=== PATIENT | female | born 1965 | race Asian ===

== ENCOUNTER 2024-03-15 18:13 | Inpatient (IN) | payer MEDICARE, OTHER ==
[~2024-03-15] VITALS: Ht 149.9 cm; Wt 37.2 kg
[2024-03-15] MEDS ORDERED: ACET325C7 PO (18:28)
[2024-03-15] MEDS ORDERED: POLY17PO4 PO (18:28)
[2024-03-15] MEDS ORDERED: ONDA-104 PO (18:28)
[2024-03-15] MEDS ORDERED: MAGN400O6 PO (18:28)
[2024-03-15] MEDS ORDERED: RISP0.5T65 PO (18:28)
[2024-03-15] MEDS ORDERED: MAGN400C PO (18:28)
[2024-03-15] MEDS ORDERED: LOPE2TAB25 PO (18:28)
[2024-03-15] MEDS ORDERED: CHOL500062 PO (18:28)
[2024-03-15] MEDS ORDERED: TRAZ-182 PO (18:28)
[2024-03-15] MEDS ORDERED: VALP250C3 PO (18:28)
[2024-03-15] MEDS ORDERED: SODIUM CHLORIDE PO (18:28)
[2024-03-15] MEDS ORDERED: MULT-213 PO (18:28)
[2024-03-15] MEDS ORDERED: BENZ2TAB7 PO (18:28)
[2024-03-15] MEDS ORDERED: METF-442 PO (18:28)
[2024-03-15] MEDS ORDERED: BISA10SU95 RC (18:28)
[2024-03-15] MEDS ORDERED: MINE133E RC (18:28)
[2024-03-15 18:49] LABS: BASOPHILS % (AUTO) 0.6 % (0.0-2.0); EOSINOPHILS # (AUTO) 0.1 K/uL (0.0-0.7); EOSINOPHILS % (AUTO) 1.9 % (0.0-7.0); HEMATOCRIT 36.1 % (31.2-41.9); HEMOGLOBIN 12.7 g/dL (10.9-14.3); LYMPHOCYTES # (AUTO) 2.9 K/uL (0.8-4.8); LYMPHOCYTES % (AUTO) 41.2 % (20.5-51.5); MEAN CORPUSCULAR HEMOGLOBIN 32.3 uug (24.7-32.8); MEAN CORPUSCULAR HGB CONC 35 g/dL (32.3-35.6); MEAN CORPUSCULAR VOLUME 91.7 fL (75.5-95.3); MONOCYTES # (AUTO) 0.5 K/uL (0.1-1.30); MONOCYTES % (AUTO) 7.2 % (0.0-11.0); NEUTROPHILS # (AUTO) 3.5 K/uL (1.8-8.9); NEUTROPHILS % (AUTO) 49.1 % (38.5-71.5); PLATELET COUNT (AUTO) 302 K/uL (179-408); RED BLOOD CELL COUNT(AUTO) 3.93 MIL/uL (3.63-4.92); RED CELL DISTRIBUTION WIDTH 13.7 % (12.3-17.7); WHITE BLOOD COUNT (AUTO) 7.1 K/uL (3.8-11.8)
[2024-03-15 18:54] LABS: DIFFERENTIAL COMMENT 1
[2024-03-15 19:01] LABS: CALCIUM 8.7 mg/dL (8.5-10.1); CARBON DIOXIDE 29 mmol/L (21-32); CHLORIDE 96 mmol/L (98-107); CREATININE 0.5 mg/dL (0.6-1.3); GLUCOSE 138 mg/dL (74-106); POTASSIUM 4.2 mmol/L (3.5-5.1); SODIUM SERUM 136 mmol/L (136-145); UREA NITROGEN, BLOOD 8 mg/dL (7-18)
[2024-03-15 19:04] LABS: ETHANOL < 3 MG/DL (0-10)
[2024-03-15 19:11] LABS: *BILIRUBIN,URIN NEGATIVE (NEGATIVE); *BLOOD, URINE NEGATIVE (NEGATIVE); *CLARITY,URINE CLEAR (CLEAR); *COLOR,URINE YELLOW (YELLOW); *KETONES,URINE NEGATIVE (NEGATIVE); *PROTEIN,URINE NEGATIVE (NEGATIVE); *UROBILINOGEN,URINE 0.2 E.U./dl (NORMAL); LEUKOCYTE ESTERASE ,URINE NEGATIVE (NEGATIVE); NITRITE, URINE NEGATIVE (NEGATIVE); UGLUCOSE NEGATIVE (NEGATIVE)
[2024-03-15 19:15] LABS: ACETAMINOPHEN < 2.0 ug/mL (10-30); ALANINE AMINOTRANSFERASE 20 U/L (14-59); ALBUMIN 3.5 g/dL (3.4-5.0); ALKALINE PHOSPHATASE 71 U/L (50-136); ASPARTATE AMINOTRANSFERASE 20 U/L (15-37); BILIRUBIN,TOTAL 0.4 mg/dL (0.2-1.0); TOTAL PROTEIN, SERUM 7.5 g/dL (6.4-8.2)
[2024-03-15 19:23] LABS: *AMPHETAMINE, URINE NEGATIVE (NEGATIVE); *BARBITURATE, URINE NEGATIVE (NEGATIVE); *BENZODIAZEPINE, URINE NEGATIVE (NEGATIVE); *CANNABINOID, URINE NEGATIVE (NEGATIVE); *COCCAINE, URINE NEGATIVE (NEGATIVE); *OPIATE, URINE NEGATIVE (NEGATIVE); *PHENCYCLIDINE SCREEN,URINE NEGATIVE (NEGATIVE)
[2024-03-15 19:25] LABS: FENTANYL, URINE NEGATIVE (NEGATIVE)
[2024-03-15 19:27] LABS: BILIRUBIN,DIRECT < 0.1 mg/dL (0.0-0.2)
[2024-03-15] MEDS ORDERED: MAGNESIUM HYDROXIDE 30 ML LIQUID UDC PO PRN (22:00)
[2024-03-15] MEDS ORDERED: ACETAMINOPHEN 325 MG TABLET PO PRN (22:00)
[2024-03-15] MEDS ORDERED: MAG HYDROX/AL HYDROX/SIMETH 30 ML LIQUID UDC PO PRN (22:00)
[2024-03-15 22:18] VITALS: BP 129/64; TEMP 98.1; O2SAT 98
[2024-03-15] MEDS: LORAZEPAM 0.5 MG TABLET PO PRN (22:27)
[2024-03-15] MEDS: BLOOD SUGAR DIAGNOSTIC 1 EACH STRIP VI ONE (22:54)
[2024-03-16 07:30] VITALS: BP 102/52; TEMP 97.6; O2SAT 100
[2024-03-16 08:30] LABS: ALBUMIN 3.9 g/dL (3.4-5.0); BILIRUBIN,TOTAL 0.5 mg/dL (0.2-1.0); CALCIUM 9.2 mg/dL (8.5-10.1); CREATININE 0.6 mg/dL (0.6-1.3); TOTAL PROTEIN, SERUM 8.5 g/dL (6.4-8.2)
[2024-03-16] MEDS: NICOTINE 14 MG/24HR PATCH TD SCH (09:09)
[2024-03-16] MEDS: TRIHEXYPHENIDYL HCL 2 MG TABLET PO SCH (10:32)
[2024-03-16] MEDS: risperiDONE 0.5 MG TABLET PO SCH (10:32)
[2024-03-16] MEDS ORDERED: MAGNESIUM HYDROXIDE 30 ML LIQUID UDC PO PRN (11:00)
[2024-03-16] MEDS ORDERED: Medication Not On Formulary EA (Acetaminophen (Tylenol) 650 MG) PO SCH (11:00)
[2024-03-16] MEDS ORDERED: BISACODYL 10 MG SUPP.RECT RC PRN (11:00)
[2024-03-16 16:58] VITALS: BP 101/53; TEMP 98.6; O2SAT 99
[2024-03-16] MEDS ORDERED: Medication Not On Formulary EA (Metformin Hcl 1,000 MG) PO SCH (17:00)
[2024-03-16] MEDS: METFORMIN HCL 500 MG TABLET PO SCH (17:22)
[2024-03-16 20:00] VITALS: BP 90/59; TEMP 97.3; O2SAT 98
[2024-03-16] MEDS: MIRTAZAPINE 15 MG TABLET PO SCH (21:53)
[2024-03-16] MEDS: DIVALPROEX SPRINKLE 125 MG CAP.SPRINK PO SCH (21:53)
[2024-03-16] MEDS: ZOLPIDEM 5 MG TABLET PO PRN (22:39)
[2024-03-17 08:05] VITALS: BP 129/49; TEMP 97.8; O2SAT 100
[2024-03-17] MEDS ORDERED: Medication Not On Formulary EA (Cholecalciferol (Vitamin D3) (Vitamin D3) 1 TAB) PO SCH (09:00)
[2024-03-17] MEDS ORDERED: Medication Not On Formulary EA (Multivitamins W-Minerals (Multivitamin With Minerals) 1 PO SCH (09:00)
[2024-03-17] MEDS: CHOLECALCIFEROL 1,000 UNIT TABLET PO SCH (09:15)
[2024-03-17] MEDS: MULTIVIT, IRON, MIN NO. 8, FA TABLET PO SCH (09:15)
[2024-03-17] MEDS: MIRALAX 17 GM POWD.PACK PO SCH (09:16)
[2024-03-17 15:17] VITALS: BP 108/71; TEMP 98; O2SAT 99
[2024-03-17 20:00] VITALS: BP 112/53; TEMP 97.8; O2SAT 100
[2024-03-18 07:59] VITALS: BP 101/46; TEMP 98; O2SAT 96
[2024-03-18 16:09] VITALS: BP 112/74; TEMP 98.4; O2SAT 100
[2024-03-18 20:00] VITALS: BP 113/53; TEMP 98.1; O2SAT 99
[2024-03-19 07:30] VITALS: BP 116/56; TEMP 97.3; O2SAT 98
[2024-03-19 16:40] VITALS: BP 106/47; TEMP 97.3; O2SAT 100
[2024-03-19 20:00] VITALS: BP 115/83; TEMP 98.2; O2SAT 99
[2024-03-20 08:50] VITALS: BP 108/64; TEMP 98.1; O2SAT 98
[2024-03-20] MEDS: GLUCERNA SHAKE 237 ML CAN PO SCH (16:24)
[2024-03-20 16:50] VITALS: BP 105/50; TEMP 98; O2SAT 98
[2024-03-20 19:54] VITALS: BP 106/51; TEMP 98.2; O2SAT 96
[2024-03-21 08:43] VITALS: BP 96/53; TEMP 98.3; O2SAT 99
[2024-03-21] MEDS ORDERED: risperiDONE 0.5 MG TABLET PO SCH (09:00)
[2024-03-21] MEDS: risperiDONE 1 MG TABLET PO SCH (09:56)
[2024-03-21 16:06] VITALS: BP 107/57; TEMP 98.1; O2SAT 98
[2024-03-21 19:57] VITALS: BP 110/53; TEMP 98.1; O2SAT 96
[2024-03-22 08:04] VITALS: BP 99/46; TEMP 98; O2SAT 98
[2024-03-22 15:20] VITALS: BP 107/46; TEMP 98; O2SAT 98
[2024-03-22 22:55] VITALS: BP 115/46; TEMP 98; O2SAT 99
[2024-03-23 13:04] VITALS: BP 121/59; TEMP 98; O2SAT 98
[2024-03-23 20:00] VITALS: BP 112/55; TEMP 98.1; O2SAT 98
[2024-03-24 08:10] VITALS: BP 154/72; TEMP 98; O2SAT 96
[2024-03-24 15:29] VITALS: BP 119/58; TEMP 98; O2SAT 96
[2024-03-24 20:00] VITALS: BP 114/63; TEMP 97.9; O2SAT 98
[2024-03-25 08:04] VITALS: BP 160/64; TEMP 98.2; O2SAT 98
== END 2024-03-25 16:15 | DRG 885 ==
LOC: ER 18:20 → GPS 19:20
PROVIDERS: ADMIT Psychiatry & Neurology Psychiatry; ATTEND Nurse Practitioner Acute Care
DX: F25.0 Schizoaffective disorder, bipolar type (principal); E43 Unspecified severe protein-calorie malnutrition; Z68.1 Body mass index [BMI] 19.9 or less, adult; R64 Cachexia; G24.01 Drug induced subacute dyskinesia; E78.5 Hyperlipidemia, unspecified; E11.9 Type 2 diabetes mellitus without complications; Z79.84 Long term (current) use of oral hypoglycemic drugs; Z79.899 Other long term (current) drug therapy; F41.9 Anxiety disorder, unspecified; E05.90 Thyrotoxicosis, unspecified without thyrotoxic crisis or storm; M62.81 Muscle weakness (generalized)
CPT/HCPCS: 36415; 80164; 85025; G0480